=== PATIENT | male | born 1940 | race Caucasian/White ===

== ENCOUNTER 2022-02-19 15:56 | Inpatient (IN) | payer MEDICARE ==
[2022-02-19 16:29] VITALS: BMI 28.2
[2022-02-19] MEDS ORDERED: Acetaminophen 325 MG TAB PO PRN (18:04)
[2022-02-19] MEDS: Sodium Chloride 0.9% 1,000 ML IV SCH (18:49)
[2022-02-19] MEDS: Simvastatin 10 MG TAB PO SCH (20:39)
[2022-02-19] MEDS: Atenolol 25 MG TAB PO SCH (20:39)
[2022-02-19] MEDS ORDERED: Oxybutynin 5 MG TAB PO SCH (21:00)
[2022-02-19] MEDS ORDERED: diphenhydrAMINE 25 MG CAP PO SCH (22:00)
[2022-02-20 05:00] LABS: #Eosinphils 0.4 10x3/uL (0.0-0.5); #Monocytes 0.5 10x3/uL (0.0-1.1); %Basophils 0.4 % (0.0-2.0); %Eosinophils 3.7 % (0.0-6.0); %Lymphocytes 11.5 % (18.0-47.0); %Monocytes 5.3 % (0.0-10.0); %Neutrophils 78.7 % (40.0-75.0); Hemoglobin 14.6 g/dL (13.5-17.5); Mean Corpuscular Volume 87.9 fl (81.2-95.1); Mean Platelet Volume 12.4 fl (7.4-10.4); Platelet Count 134 10x3/uL (150-450); Red Blood Cell (RBC) Count 5.04 10x6/uL (4.32-5.72); White Blood Cell (WBC) Count 10.2 10x3/uL (3.5-10.5)
[2022-02-20] MEDS: Levothyroxine Sodium 75 MCG TAB PO SCH (05:10)
[2022-02-20 05:21] LABS: Anion Gap 14 mmol/L (10-20); BUN (Urea Nitrogen) 25 mg/dL (8.4-25.7); Calc. Creatinine Clearance 66 mL/min (70-130); Carbon Dioxide 23 mmol/L (23-31); Chloride 105 mmol/L (98-107); Estimated GFR 60; Glucose 120 mg/dL (83-110); Potassium 3.5 mmol/L (3.5-5.1); Sodium 138 mmol/L (136-145)
[2022-02-20] MEDS: Sodium Chloride 0.9% 1,000 ML IV SCH ×2 (08:15→17:06)
[2022-02-20] MEDS: Allopurinol 300 MG TAB PO SCH (08:53)
[2022-02-20] MEDS: Ezetimibe 10 MG TAB PO SCH (08:53)
[2022-02-20] MEDS: Atenolol 25 MG TAB PO SCH ×2 (08:53→20:26)
[2022-02-20] MEDS ORDERED: Oxybutynin 5 MG TAB PO SCH (09:00)
[2022-02-20] MEDS ORDERED: Polyethylene Glycol 3350 17 GM Packet PO PRN (15:22)
[2022-02-20] MEDS ORDERED: Potassium Chloride 20 MEQ TAB PO SCH (16:00)
[2022-02-20] MEDS: Gabapentin 400 MG CAP PO SCH (20:24)
[2022-02-20] MEDS: Simvastatin 10 MG TAB PO SCH (20:26)
[2022-02-20] MEDS: Zolpidem Tartrate 5 MG TAB PO SCH (20:27)
[2022-02-21] MEDS: Sodium Chloride 0.9% 1,000 ML IV SCH (03:26)
[2022-02-21 04:33] LABS: #Eosinphils 0.4 10x3/uL (0.0-0.5); #Monocytes 0.5 10x3/uL (0.0-1.1); #Neutrophils 5.2 10x3/uL (1.5-8.4); %Basophils 0.5 % (0.0-2.0); %Eosinophils 4.8 % (0.0-6.0); %Lymphocytes 15.9 % (18.0-47.0); %Monocytes 7.1 % (0.0-10.0); %Neutrophils 71.3 % (40.0-75.0); Hemoglobin 14.2 g/dL (13.5-17.5); Mean Corpuscular HGB CONC 33.2 g/dL (32.0-36.0); Mean Corpuscular Volume 87.3 fl (81.2-95.1); Mean Platelet Volume 11.9 fl (7.4-10.4); Platelet Count 150 10x3/uL (150-450); RBC Distribution Width 14.9 % (11.5-14.5); White Blood Cell (WBC) Count 7.3 10x3/uL (3.5-10.5)
[2022-02-21 04:47] LABS: Anion Gap 14 mmol/L (10-20); BUN (Urea Nitrogen) 17 mg/dL (8.4-25.7); Calc. Creatinine Clearance 89 mL/min (70-130); Carbon Dioxide 21 mmol/L (23-31); Chloride 108 mmol/L (98-107); Estimated GFR 85; Glucose 104 mg/dL (83-110); Potassium 3.9 mmol/L (3.5-5.1); Sodium 139 mmol/L (136-145)
[2022-02-21] MEDS: Levothyroxine Sodium 75 MCG TAB PO SCH (06:44)
[2022-02-21] MEDS: Atenolol 25 MG TAB PO SCH ×2 (10:42→20:34)
[2022-02-21] MEDS: Ezetimibe 10 MG TAB PO SCH (10:43)
[2022-02-21] MEDS: Allopurinol 300 MG TAB PO SCH (10:43)
[2022-02-21] MEDS: Gabapentin 400 MG CAP PO SCH ×2 (10:43→20:33)
[2022-02-21] MEDS ORDERED: hydrALAZINE 20 MG/ML VIAL SLOW IVP PRN (13:06)
[2022-02-21] MEDS ORDERED: NIFEdipine XL 60 MG TAB PO SCH (17:00)
[2022-02-21] MEDS: Zolpidem Tartrate 5 MG TAB PO SCH (20:33)
[2022-02-21] MEDS: Simvastatin 10 MG TAB PO SCH (20:34)
[2022-02-21] MEDS ORDERED: Zolpidem Tartrate 5 MG TAB PO SCH (21:00)
[2022-02-22] MEDS: Sodium Chloride 0.9% 1,000 ML IV SCH (03:07)
[2022-02-22 05:54] LABS: Anion Gap 17 mmol/L (10-20); BUN (Urea Nitrogen) 16 mg/dL (8.4-25.7); Calc. Creatinine Clearance 90 mL/min (70-130); Calcium 9.2 mg/dL (7.8-10.44); Carbon Dioxide 18 mmol/L (23-31); Chloride 108 mmol/L (98-107); Estimated GFR 86; Glucose 114 mg/dL (83-110); Potassium 3.9 mmol/L (3.5-5.1); Sodium 139 mmol/L (136-145)
[2022-02-22 06:02] LABS: #Basophils 0.1 10x3/uL (0.0-0.2); #Eosinphils 0.3 10x3/uL (0.0-0.5); #Monocytes 0.6 10x3/uL (0.0-1.1); #Neutrophils 5.5 10x3/uL (1.5-8.4); %Lymphocytes 15.8 % (18.0-47.0); %Monocytes 7.4 % (0.0-10.0); %Neutrophils 71.5 % (40.0-75.0); Hemoglobin 15.2 g/dL (13.5-17.5); Mean Corpuscular HGB CONC 33.9 g/dL (32.0-36.0); Mean Corpuscular Hemoglobin 29.2 pg (27.0-33.0); Mean Corpuscular Volume 86.3 fl (81.2-95.1); Mean Platelet Volume 11.8 fl (7.4-10.4); Platelet Count 200 10x3/uL (150-450); RBC Distribution Width 14.9 % (11.5-14.5); White Blood Cell (WBC) Count 7.7 10x3/uL (3.5-10.5)
[2022-02-22] MEDS: Levothyroxine Sodium 75 MCG TAB PO SCH (06:26)
[2022-02-22] MEDS ORDERED: NIFEdipine XL 60 MG TAB PO SCH (09:00)
[2022-02-22] MEDS: Ezetimibe 10 MG TAB PO SCH (09:49)
[2022-02-22] MEDS: Gabapentin 400 MG CAP PO SCH ×2 (09:49→16:35)
[2022-02-22] MEDS: Atenolol 25 MG TAB PO SCH (09:49)
[2022-02-22] MEDS: Allopurinol 300 MG TAB PO SCH (09:50)
[2022-02-22 10:08] LABS: % Free PSA Greater than 10.0 % (.); Total PSA Less than 0.1 ng/mL (0.0-4.0)
[2022-02-22 12:36] VITALS: TEMP 98.3
[2022-02-22] MEDS ORDERED: Oseltamivir 75 MG CAP PO SCH (14:00)
[2022-02-22 21:16] VITALS: BP 130/65
== END 2022-02-22 17:40 | disposition home or self-care (01) | DRG 57 ==
LOC: INTOOBSV 15:56 → CSHTELE 15:56 → OBSVTOIN 02-20 16:18
PROVIDERS: ADMIT Internal Medicine; ATTEND Hospitalist
DX: G91.2 (Idiopathic) normal pressure hydrocephalus (principal); N17.9 Acute kidney failure, unspecified; F03.90 Unspecified dementia, unspecified severity, without behavioral disturbance, psychotic disturbance, mood disturbance, and anxiety; I25.10 Atherosclerotic heart disease of native coronary artery without angina pectoris; E78.5 Hyperlipidemia, unspecified; G62.9 Polyneuropathy, unspecified; R33.9 Retention of urine, unspecified; N18.9 Chronic kidney disease, unspecified; D72.829 Elevated white blood cell count, unspecified; K59.00 Constipation, unspecified; T44.3X5A Adverse effect of other parasympatholytics [anticholinergics and antimuscarinics] and spasmolytics, initial encounter; R13.12 Dysphagia, oropharyngeal phase; T50.995A Adverse effect of other drugs, medicaments and biological substances, initial encounter; I12.9 Hypertensive chronic kidney disease with stage 1 through stage 4 chronic kidney disease, or unspecified chronic kidney disease; Z79.899 Other long term (current) drug therapy
CPT/HCPCS: 36415; 70553; 71045; 74230; 80048; 84153; 84154; 85025; 94760; J0360; J7050

== ENCOUNTER 2022-05-04 11:34 | Inpatient (IN) | payer MEDICARE ==
[2022-05-04 12:12] LABS: #Basophils 0.1 10x3/uL (0.0-0.2); #Eosinphils 0.2 10x3/uL (0.0-0.5); %Basophils 0.5 % (0.0-2.0); %Eosinophils 1.6 % (0.0-6.0); %Lymphocytes 9.6 % (18.0-47.0); %Monocytes 6.9 % (0.0-10.0); %Neutrophils 81.1 % (40.0-75.0); Hemoglobin 15.2 g/dL (13.5-17.5); Mean Corpuscular HGB CONC 33.5 g/dL (32.0-36.0); Mean Corpuscular Hemoglobin 29.3 pg (27.0-33.0); Mean Corpuscular Volume 87.5 fl (81.2-95.1); Platelet Count 150 10x3/uL (150-450); RBC Distribution Width 16.5 % (11.5-14.5); Red Blood Cell (RBC) Count 5.19 10x6/uL (4.32-5.72); White Blood Cell (WBC) Count 14.8 10x3/uL (3.5-10.5)
[2022-05-04 12:18] LABS: ALT (SGPT) 27 U/L (8-55); AST (SGOT) 35 U/L (5-34); Albumin 3.9 g/dL (3.4-4.8); Alkaline Phosphatase 121 U/L (40-110); Anion Gap 13 mmol/L (10-20); BUN (Urea Nitrogen) 15 mg/dL (8.4-25.7); Bilirubin, Total 1.5 mg/dL (0.2-1.2); CK (CPK) 24 U/L (30-200); Calc. Creatinine Clearance 0 mL/min (70-130); Calcium 9.3 mg/dL (7.8-10.44); Carbon Dioxide 26 mmol/L (23-31); Chloride 105 mmol/L (98-107); Estimated GFR 75; Globulin 2.6 g/dL (2.4-3.5); Glucose 140 mg/dL (83-110); Lipase 17 U/L (8-78); Potassium 3.7 mmol/L (3.5-5.1); Protein, Total 6.5 g/dL (5.8-8.1); Sodium 140 mmol/L (136-145)
[2022-05-04] MEDS ORDERED: Lidocaine Viscous Sol 2% 15 ml UD Cup ONE (14:59)
[2022-05-04] MEDS ORDERED: cefTRIAXone\\ROCEPHIN 1 GM VIAL ONE (15:19)
[2022-05-04] MEDS ORDERED: Ondansetron ODT 4 MG TAB PO PRN (17:06)
[2022-05-04] MEDS ORDERED: Acetaminophen 325 MG TAB PO PRN (17:06)
[2022-05-04] MEDS ORDERED: Sodium Chloride 0.9% 1,000 ML IV SCH (17:15)
[2022-05-04] MEDS ORDERED: Electrolyte Replacement Protocol 1 EACH FS SCH (17:15)
[2022-05-04 17:54] VITALS: BMI 22.3
[2022-05-04] MEDS ORDERED: FLU VACC QS2022-23(65YR UP)/PF 240 MCG/0.7 ML SYRINGE IM ONE (18:30)
[2022-05-04 19:27] LABS: Bilirubin Neg (Negative); Blood, Urine 250 (Negative); Clarity Cloudy (Clear); Glucose, Urine (Dipstick) Normal (Negative); Ketone, Urine 5 mg/dL (Negative); Leukocyte 25 (Negative); Nitrite Negative (Negative); Protein, Urine (Dipstick) 30 mg/dl (Neg-Trace); Specific Gravity, Urine 1.015 (1.005-1.030); pH, Urine 6.5 (5.0-9.0)
[2022-05-04 19:38] LABS: RBC/HPF Greater than 50 HPF (0-3); Urine Culture Reflex No No
[2022-05-04 19:39] LABS: Bacteria/HPF Rare-Few HPF (None Seen); Squamous Epithelial 0-3 HPF (0-3)
[2022-05-04] MEDS: Atenolol 25 MG TAB PO SCH (20:38)
[2022-05-04] MEDS: Amoxicillin/Potassium Clav 875 MG TAB PO SCH (20:38)
[2022-05-04] MEDS: Lisinopril 20 MG TAB PO SCH (20:38)
[2022-05-04] MEDS: Hydrochlorothiazide 25 MG TAB PO SCH (20:39)
[2022-05-04] MEDS ORDERED: Gabapentin 400 MG CAP PO SCH (21:00)
[2022-05-05 02:10] LABS: SARS-CoV-2 NAA Rapid Test Not Detected (NotDetected)
[2022-05-05 05:26] LABS: ALT (SGPT) 27 U/L (8-55); AST (SGOT) 36 U/L (5-34); Albumin 3.5 g/dL (3.4-4.8); Alkaline Phosphatase 114 U/L (40-110); Anion Gap 9 mmol/L (10-20); BUN (Urea Nitrogen) 12 mg/dL (8.4-25.7); Bilirubin, Total 1.2 mg/dL (0.2-1.2); Calc. Creatinine Clearance 80 mL/min (70-130); Calcium 8.9 mg/dL (7.8-10.44); Carbon Dioxide 26 mmol/L (23-31); Chloride 105 mmol/L (98-107); Estimated GFR 88; Globulin 2.5 g/dL (2.4-3.5); Glucose 134 mg/dL (83-110); Magnesium 1.8 mg/dL (1.6-2.6); Potassium 3.4 mmol/L (3.5-5.1); Sodium 137 mmol/L (136-145)
[2022-05-05 05:32] LABS: Hemoglobin 13.6 g/dL (13.5-17.5); Mean Corpuscular HGB CONC 33.2 g/dL (32.0-36.0); Mean Corpuscular Hemoglobin 29.1 pg (27.0-33.0); Mean Corpuscular Volume 87.8 fl (81.2-95.1); Mean Platelet Volume 10.8 fl (7.4-10.4); Platelet Count 127 10x3/uL (150-450); RBC Distribution Width 16.6 % (11.5-14.5); Red Blood Cell (RBC) Count 4.67 10x6/uL (4.32-5.72); White Blood Cell (WBC) Count 9.4 10x3/uL (3.5-10.5)
[2022-05-05 05:33] LABS: #Basophils 0.1 10x3/uL (0.0-0.2); #Eosinphils 0.3 10x3/uL (0.0-0.5); #Monocytes 0.7 10x3/uL (0.0-1.1); #Neutrophils 6.8 10x3/uL (1.5-8.4); %Basophils 0.5 % (0.0-2.0); %Eosinophils 3.7 % (0.0-6.0); %Lymphocytes 14.5 % (18.0-47.0); %Monocytes 7.1 % (0.0-10.0); %Neutrophils 73.8 % (40.0-75.0)
[2022-05-05] MEDS: Levothyroxine Sodium 75 MCG TAB PO SCH (05:44)
[2022-05-05] MEDS ORDERED: Magnesium 2 GM/50 ML(in water) 2 GM in Premix Bag 1 BAG IVPB SCH (06:00)
[2022-05-05] MEDS ORDERED: Potassium Chloride 20 MEQ TAB PO SCH (06:00)
[2022-05-05] MEDS: cefTRIAXone\\ROCEPHIN 1 GM in Sodium Chloride 0.9% 100 ML IVPB SCH (10:01)
[2022-05-05] MEDS: Enoxaparin Sodium 40 MG/0.4 ML SYRINGE SC SCH (10:02)
[2022-05-05] MEDS: Ezetimibe 10 MG TAB PO SCH (10:03)
[2022-05-05] MEDS: Lisinopril 20 MG TAB PO SCH ×2 (10:03→20:55)
[2022-05-05] MEDS: Amoxicillin/Potassium Clav 875 MG TAB PO SCH ×2 (10:04→20:55)
[2022-05-05] MEDS: Atenolol 25 MG TAB PO SCH ×2 (10:04→20:56)
[2022-05-05] MEDS: Hydrochlorothiazide 25 MG TAB PO SCH ×2 (10:05→20:57)
[2022-05-05] MEDS ORDERED: ESZOPICLONE 3 MG PO SCH (22:00)
[2022-05-06] MEDS: Levothyroxine Sodium 75 MCG TAB PO SCH (05:36)
[2022-05-06 05:46] LABS: #Basophils 0.1 10x3/uL (0.0-0.2); #Eosinphils 0.3 10x3/uL (0.0-0.5); #Monocytes 0.5 10x3/uL (0.0-1.1); #Neutrophils 4.9 10x3/uL (1.5-8.4); %Basophils 0.9 % (0.0-2.0); %Eosinophils 4.4 % (0.0-6.0); %Lymphocytes 22.1 % (18.0-47.0); %Monocytes 6.7 % (0.0-10.0); %Neutrophils 65.5 % (40.0-75.0); Hemoglobin 13.9 g/dL (13.5-17.5); Mean Corpuscular HGB CONC 33.7 g/dL (32.0-36.0); Mean Platelet Volume 11.2 fl (7.4-10.4); Platelet Count 152 10x3/uL (150-450); RBC Distribution Width 16.2 % (11.5-14.5); Red Blood Cell (RBC) Count 4.79 10x6/uL (4.32-5.72); White Blood Cell (WBC) Count 7.5 10x3/uL (3.5-10.5)
[2022-05-06 05:55] LABS: ALT (SGPT) 37 U/L (8-55); AST (SGOT) 46 U/L (5-34); Albumin 3.5 g/dL (3.4-4.8); Alkaline Phosphatase 127 U/L (40-110); Anion Gap 12 mmol/L (10-20); BUN (Urea Nitrogen) 12 mg/dL (8.4-25.7); Bilirubin, Total 0.9 mg/dL (0.2-1.2); Calc. Creatinine Clearance 75 mL/min (70-130); Calcium 9.2 mg/dL (7.8-10.44); Carbon Dioxide 26 mmol/L (23-31); Chloride 107 mmol/L (98-107); Estimated GFR 86; Globulin 2.8 g/dL (2.4-3.5); Glucose 127 mg/dL (83-110); Potassium 3.6 mmol/L (3.5-5.1); Protein, Total 6.3 g/dL (5.8-8.1); Sodium 141 mmol/L (136-145)
[2022-05-06] MEDS ORDERED: Magnesium 2 GM/50 ML(in water) 2 GM in Premix Bag 1 BAG IVPB SCH (06:15)
[2022-05-06] MEDS ORDERED: Tamsulosin HCl 0.4 MG CAP PO SCH (09:15)
[2022-05-06] MEDS: cefTRIAXone\\ROCEPHIN 1 GM in Sodium Chloride 0.9% 100 ML IVPB SCH (10:32)
[2022-05-06] MEDS: Enoxaparin Sodium 40 MG/0.4 ML SYRINGE SC SCH (10:38)
[2022-05-06] MEDS: Amoxicillin/Potassium Clav 875 MG TAB PO SCH ×2 (10:40→21:34)
[2022-05-06] MEDS: Ezetimibe 10 MG TAB PO SCH (10:40)
[2022-05-06] MEDS: Atenolol 25 MG TAB PO SCH ×2 (10:42→21:32)
[2022-05-06] MEDS: Hydrochlorothiazide 25 MG TAB PO SCH ×2 (10:42→21:43)
[2022-05-06] MEDS: Lisinopril 20 MG TAB PO SCH ×2 (10:42→21:34)
[2022-05-06] MEDS: ESZOPICLONE 3 MG PO SCH (21:43)
[2022-05-07 05:40] LABS: Magnesium 1.9 mg/dL (1.6-2.6); Potassium 3.7 mmol/L (3.5-5.1)
[2022-05-07] MEDS: Levothyroxine Sodium 75 MCG TAB PO SCH (05:52)
[2022-05-07] MEDS: Enoxaparin Sodium 40 MG/0.4 ML SYRINGE SC SCH (09:05)
[2022-05-07] MEDS: Ezetimibe 10 MG TAB PO SCH (09:06)
[2022-05-07] MEDS: Hydrochlorothiazide 25 MG TAB PO SCH ×2 (09:06→22:10)
[2022-05-07] MEDS: Atenolol 25 MG TAB PO SCH ×2 (09:06→22:10)
[2022-05-07] MEDS: Amoxicillin/Potassium Clav 875 MG TAB PO SCH ×3 (09:06→22:18)
[2022-05-07] MEDS: Tamsulosin HCl 0.4 MG CAP PO SCH (09:06)
[2022-05-07] MEDS: Lisinopril 20 MG TAB PO SCH ×2 (09:07→22:18)
[2022-05-07] MEDS: cefTRIAXone\\ROCEPHIN 1 GM in Sodium Chloride 0.9% 100 ML IVPB SCH (10:40)
[2022-05-07] MEDS ORDERED: Magnesium 2 GM/50 ML(in water) 2 GM in Premix Bag 1 BAG IVPB SCH (13:00)
[2022-05-07] MEDS: ESZOPICLONE 3 MG PO SCH (23:03)
[2022-05-08 06:12] LABS: Phosphorus 3.1 mg/dL (2.3-4.7)
[2022-05-08] MEDS: Levothyroxine Sodium 75 MCG TAB PO SCH (06:32)
[2022-05-08] MEDS ORDERED: Magnesium 2 GM/50 ML(in water) 2 GM in Premix Bag 1 BAG IVPB SCH (07:00)
[2022-05-08] MEDS: Atenolol 25 MG TAB PO SCH (10:46)
[2022-05-08] MEDS: cefTRIAXone\\ROCEPHIN 1 GM in Sodium Chloride 0.9% 100 ML IVPB SCH (10:47)
[2022-05-08] MEDS: Lisinopril 20 MG TAB PO SCH (10:47)
[2022-05-08] MEDS: Enoxaparin Sodium 40 MG/0.4 ML SYRINGE SC SCH (10:47)
[2022-05-08] MEDS: Ezetimibe 10 MG TAB PO SCH (10:48)
[2022-05-08] MEDS: Hydrochlorothiazide 25 MG TAB PO SCH (10:48)
[2022-05-08] MEDS: Amoxicillin/Potassium Clav 875 MG TAB PO SCH (10:48)
[2022-05-08] MEDS: Tamsulosin HCl 0.4 MG CAP PO SCH (10:48)
[2022-05-08 17:09] VITALS: BP 118/60; TEMP 98.4
== END 2022-05-08 19:00 | DRG 690 ==
LOC: CSHERS 11:34 → CSHTELE 17:00 → OBSVTOIN 05-06 11:00
PROVIDERS: ADMIT Internal Medicine; ATTEND Family Medicine
DX: N39.0 Urinary tract infection, site not specified (principal); I10 Essential (primary) hypertension; E78.5 Hyperlipidemia, unspecified; I25.10 Atherosclerotic heart disease of native coronary artery without angina pectoris; I48.0 Paroxysmal atrial fibrillation; F32.A Depression, unspecified; F41.9 Anxiety disorder, unspecified; G89.29 Other chronic pain; E03.9 Hypothyroidism, unspecified; G62.9 Polyneuropathy, unspecified; R33.9 Retention of urine, unspecified; D72.829 Elevated white blood cell count, unspecified; F03.A0 Unspecified dementia, mild, without behavioral disturbance, psychotic disturbance, mood disturbance, and anxiety; N31.9 Neuromuscular dysfunction of bladder, unspecified; Z20.822 Contact with and (suspected) exposure to COVID-19; Z87.820 Personal history of traumatic brain injury
CPT/HCPCS: 36415; 51798; 70450; 71045; 80053; 81001; 82550; 83690; 83735; 84100; 84132; 84484; 85025; 87040; 87086; 93005; 94760; 96365; 96372; 96375; 96376; 97139; G0378; J0696; J1650; J3475; J3490; J7050; U0002